=== PATIENT | female | born 1945 | race Two or more races ===

== ENCOUNTER 2025-05-07 11:52 | Inpatient (IN) | payer MEDICARE, MEDICAID ==
[~2025-05-07] VITALS: Ht 137.2 cm; Wt 53.0 kg
--- NOTE | 2025-05-07 12:52 | ED.PDOC ---
SOB-HPI HPI Comments 79y F who presents to the ED for chief complaint of shortness of breath. Pt presents she has been having shortness of breath, wheezing and dry cough for the past 3x weeks since she was discharged from after being hospitalized for similar symptoms for which she was intubated. Pt states she started to have chest tightness today and brought by family for evaluation. Pt in the ED, otherwise denies sick contacts. Pt otherwise has stable vitals in the ED.Pt denies any other symptoms at this time. 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 Hx Family History Family History: Reviewed,noncontributory to illness Social History Smoker: Non-Smoker Alcohol: Denies ETOH Use Drugs: Denies Drug Use Lives In: Home Constitutional: denies: chills, diaphoresis, fatigue, fever, malaise, sweats, weakness, others EENTM: denies: blurred vision, double vision, ear bleeding, ear discharge, ear drainage, ear pain, ear ringing, eye pain, eye redness, hearing loss, mouth pain, mouth swelling, nasal discharge, nose bleeding, nose congestion, nose pain, photophobia, tearing, throat pain, throat swelling, voice changes, others Respiratory: reports: cough, shortness of breath, wheezing; denies: hemoptysis, orthopnea, SOB at rest, SOB with excertion, stridor, others Cardiovascular: denies: chest pain, dizzy spells, diaphoresis, Dyspnea on exertion, edema, irregular heart beat, left arm pain, lightheadedness, palpitations, PND, syncope, others Gastrointestinal: denies: abdomen distended, abdominal pain, blood streaked bowels, constipated, diarrhea, dysphagia, difficulty swallowing, hematemesis, melena, nausea, poor appetite, poor fluid intake, rectal bleeding, rectal pain, vomiting, others Genitourinary: denies: abnormal vagina bleeding, burning, dyspareunia, dysuria, flank pain, frequency, hematuria, incontinence, pain, , vagina discharge, urgency, others Neurological: denies: dizziness, fainting, headache, left sided numbness, left sided weakness, numbness, paresthesia, pre-existing deficit, right sided numbness, right sided weakness, seizure, speech problems, tingling, tremors, weakness, others Musculoskeletal: denies: back pain, gout, joint pain, joint swelling, muscle pain, muscle stiffness, neck pain, others Integumetry: denies: bruises, change in color, change in hair/nails, dryness, laceration, lesions, lumps, rash, wounds, others Allergic/Immunocompromised: denies: Difficulty Healing, Frequent Infections, Hives, Itching, others Hematologic/Lymphatic: denies: anemia, blood clots, easy bleeding, easy bruising, swollen glands, others Endocrine: denies: excessive hunger, excessive sweating, excessive thirst, excessive urination, flushing, intolerance to cold, intolerance to heat, unexplained weight gain, unexplained weight loss, others Psychiatric: denies: anxiety, bipolar disorder, depression, hopeless, panic disorder, schizophrenia, sleepless, suicidal, others All Other Systems: Reviewed and Negative Physical Exam General Appearance: No Apparent Distress, Normal HEENT: Normal ENT Inspection, Pharynx Normal, TMs Normal Neck: Full Range of Motion, Non-Tender, Normal, Normal Inspection Respiratory: Wheezing (bilateral wheezing, incresed work of breathing, poor air flow, moderate respiratory distress) Cardiovascular: No Edema, No JVD, No Murmur, No Gallop, Normal Peripheral Pulses, Regular Rate/Rhythm Breast Exam: Deferred Gastrointestinal: No Organomegaly, Non Tender, No Pulsatile Mass, Normal Bowel Sounds, Soft Genitalia: Deferred Pelvic: Deferred Rectal: Deferred Extremities: No calf tenderness, Normal capillary refill, Normal inspection, Normal range of motion, Non-tender, No pedal edema Musculoskeletal : Apperance: Normal 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 Was a procedure done?: No Differential Dx Differential Diagnosis: CHF, COPD, Myocardial infarction, Pneumonia, Pulmonary Embolism, Respiratory Distress, URI X-Ray, Labs, Meds, VS Vital Signs Date Time Temp Pulse Resp B/P (MAP) Pulse Ox O2 Delivery O2 Flow Rate FiO2 05/07/25 15:22 97.9 80 16 132/43 (72) 98 97.9 05/07/25 13:50 78 18 96 Room Air* 0 21 05/07/25 13:50 98.1 78 18 132/39 (70) 96 98.1 05/07/25 13:29 14 96 Room Air* 0 21 05/07/25 12:08 73 05/07/25 11:53 97.2 77 20 127/41 97 97.2 Lab Test 05/07/25 17:42 05/07/25 14:54 05/07/25 14:51 05/07/25 13:15 Range/Units Troponin I High Sensitivity 9 9 10 </=34 ng/L Influenza Type A Antigen Negative Negative Influenza Type B Antigen Negative Negative SARS-CoV-2 Antigen (Rapid) Negative NEGATIVE White Blood Count 8.5 4.4-10.8 10^3/uL Red Blood Count 3.09 L 4.0-5.20 10^6/uL Hemoglobin 9.4 L 12.2-16.2 g/dL Hematocrit 29.1 L 36.0-46.0 % Mean Corpuscular Volume 94.2 80.0-100.0 fL Mean Corpuscular Hemoglobin 30.4 28.0-32.0 pg Mean Corpuscular Hemoglobin Concent 32.3 32.0-36.0 g/dL Red Cell Distribution Width 17.6 H 11.8-14.3 % Platelet Count 235 140-450 10^3/uL Mean Platelet Volume 8.3 6.9-10.8 fL Neutrophils (%) (Auto) 59.9 37.0-80.0 % Lymphocytes (%) (Auto) 29.9 10.0-50.0 % Monocytes (%) (Auto) 7.6 0.0-12.0 % Eosinophils (%) (Auto) 2.2 0.0-7.0 % Basophils (%) (Auto) 0.4 0.0-2.0 % Neutrophils # (Auto) 5.1 1.6-8.6 10 ^3/uL Lymphocytes # (Auto) 2.5 0.4-5.4 10 ^3/uL Monocytes # (Auto) 0.6 0-1.3 10 ^3/uL Eosinophils # (Auto) 0.2 0-0.8 10 ^3/uL Basophils # (Auto) 0 0-0.2 10 ^3/uL Nucleated Red Blood Cells 0.1 % Sodium Level 141 136-145 mmol/L Potassium Level 5.3 H 3.5-5.1 mmol/L Chloride Level 108 H 98-107 mmol/L Carbon Dioxide Level 24 20-31 mmol/L Anion Gap 9 5-15 Blood Urea Nitrogen 32 H 9-23 mg/dL Creatinine 1.82 H 0.550-1.02 mg/dL Glomerular Filtration Rate Calc 28 >90 mL/min BUN/Creatinine Ratio 17.6 10.0-20.0 Serum Glucose 96 74-106 mg/dL Lactic Acid Level 0.8 0.4-2.0 mmol/L Calcium Level 8.9 8.7-10.4 mg/dL B-Type Natriuretic Peptide 199.18 0-100 pg/mL Current Medications Medications (Trade) Dose Ordered Sig/Bonnie Route Start Time Stop Time Status Last Admin Albuterol (Ventolin Medneb) 20 mg ONCE ONCE N 05/07/25 13:00 05/07/25 13:03 DC 05/07/25 13:25 Sodium Chloride 1,000 ml @ 1,000 mls/hr Q1H ONCE IV 05/07/25 13:00 05/07/25 13:59 DC 05/07/25 13:50 Methylprednisolone Sodium Succinate (Solu Medrol) 125 mg ONCE ONCE IV 05/07/25 13:00 05/07/25 13:03 DC 05/07/25 13:50 Ipratropium [place] (Atrovent Medneb) 1 mg ONCE ONCE N 05/07/25 13:00 05/07/25 13:03 DC 05/07/25 13:25 Piperacillin Sod/ Tazobactam Sod 100 ml @ 100 mls/hr ONCE ONCE IV 05/07/25 13:30 05/07/25 14:29 DC 05/07/25 13:50 Vancomycin HCl 250 ml @ 200 mls/hr ONCE ONCE IV 05/07/25 14:30 05/07/25 15:44 DC 05/07/25 15:[address] [address] Ph: [phone] DIAGNOSTIC IMAGING Diagnostic Imaging Report : [id number] Signed PATIENT: MICHAEL BAKER ACCT: [id number] UNIT: [id number] : 1945 LOC: ER ROOM / BED: / AGE / SEX: 79 / F ADM STATUS: REG ER SERVICE 1300 ORDERING PHYSICIAN: TANYA NICHOLS MD PROCEDURE(s): CXRP - CHEST PORTABLE REASON: r/o pna ORDER NUMBER(s): [id number], ACCESSION NUMBER(s): [id number] EXAM: XY CHEST PORTABLE HISTORY: r/o pna COMPARISON: None TECHNIQUE: Portable upright AP view of the chest was performed. FINDINGS: No pneumothorax, consolidative infiltrates, or pulmonary edema. There are calcified granulomas in both lungs. There is mild linear scarring in the right mid lung. The heart is enlarged. The aortic arch is calcific. IMPRESSION: 1. Old granulomatous disease of the chest without evidence of acute intrathoracic process. 2. Cardiomegaly and atherosclerotic vascular disease. ATED BY: MARY LUNSFORD MD DICTATED DATE/TIME: 05/07/251344 SIGNED BY: MARY LUNSFORD MD SIGNED DATE/TIME: 05/07/251344 CC: X-Ray, Labs, Meds, VS Comment 79-year-old female here today with a presentation consistent with acute respiratory failure likely secondary to asthma exacerbation with a notable history of recent intubation for the same. Patient was started on duo nebs, magnesium, and antibiotics and steroids and will be admitted for further management and care. Patient in agreement with the plan. Time of 1ST Reevaluation: 13:30 Reevaluation 1ST: Improved Time of 2ND Reevaluation: 18:54 Reevaluation 2ND: Improved Patient Education/Counseling: Diagnosis, Treatment Family Education/Counseling: No Family Present SEPSIS Sepsis Screen Date sepsis recognized/suspect: May 07, 2025 Time Sepsis recognized/suspect: 1153 Recent Procedure: No On Antibiotic Therapy: No Respiratory Rate >20: No Heart Rate >90: No Temp<36 C (96.8 F) or >38.3 C: No SBP <90 or MAP <65 mmHG: No New Acute Mental Status Change: No Is the patient on CPAP, BIPAP,: No Physician Orders Electrocardigram (05/07/25 12:28) Blood Culture (05/07/25 13:00) Chest Portable (05/07/25 13:00) Piperacillin-Tazob 3.375gm (Zosyn 3.375g (05/07/25 22:00) Vancomycin Per Pharmacy (05/07/25 13:00) Vancomycin,Random (05/08/25 06:00) Vancomycin Per Pharmacy Protoc (05/07/25 14:33) Creatinine (05/08/25 06:00) Vital Signs Date Time Temp Pulse Resp B/P (MAP) Pulse Ox O2 Delivery O2 Flow Rate FiO2 05/07/25 15:22 97.9 80 16 132/43 (72) 98 97.9 05/07/25 13:50 78 18 96 Room Air* 0 21 05/07/25 13:50 98.1 78 18 132/39 (70) 96 98.1 05/07/25 13:29 14 96 Room Air* 0 21 05/07/25 12:08 73 05/07/25 11:53 97.2 77 20 127/41 97 97.2 Laboratory Tests Test 05/07/25 13:15 Lactic Acid Level 0.8 mmol/L (0.4-2.0) White Blood Count 8.5 10^3/uL (4.4-10.8) Medications Medications Dose Ordered Sig/Bonnie Route Start Time Stop Time Status Last Admin Dose Admin Albuterol 20 mg ONCE ONCE N 05/07/25 13:00 05/07/25 13:03 DC 05/07/25 13:25 Ipratropium [place] 1 mg ONCE ONCE N 05/07/25 13:00 05/07/25 13:03 DC 05/07/25 13:25 Methylprednisolone Sodium Succinate 125 mg ONCE ONCE IV 05/07/25 13:00 05/07/25 13:03 DC 05/07/25 13:50 Piperacillin Sod/ Tazobactam Sod 100 ml @ 100 mls/hr ONCE ONCE IV 05/07/25 13:30 05/07/25 14:29 DC 05/07/25 13:50 Sodium Chloride 1,000 ml @ 1,000 mls/hr Q1H ONCE IV 05/07/25 13:00 05/07/25 13:59 DC 05/07/25 13:50 Vancomycin HCl 250 ml @ 200 mls/hr ONCE ONCE IV 05/07/25 14:30 05/07/25 15:44 DC 05/07/25 15:04 Departure 1 Departure Time of Disposition: 18:55 Impression: Primary Impression: Asthma exacerbation Additional Impressions: Acute hypoxic respiratory failure History of endotracheal intubation Disposition: ADMITTED INPATIENT Admit to: Tele Condition: Guarded Critical Care Note Critical Care Time?: Yes (45 min-critical care time only) Stability Stability form required: No Heart Score Heart Score: Heart Score Response (Comments) Value History N/A 0 EKG N/A 0 Age N/A 0 Risk Factors N/A 0 Troponin N/A 0 Total 0 I personally scribed for TANYA NICHOLS MD ([facility]) on 05/07/25 at 12:52. Electronically submitted by Abdi Frost ([email or web address] [email or web address]). I personally scribed for TANYA NICHOLS MD ([facility]) on 05/07/25 at 12:58. Electronically submitted by Abdi Frost ([facility]). I personally scribed for TANYA NICHOLS MD ([facility]) on 05/07/25 at 13:00. Electronically submitted by Abdi Frost ([facility] I personally scribed for TANYA NICHOLS MD ([facility]) on 05/07/25 at 14:46. Electronically submitted by Abdi Frost ([facility] TANYA NICHOLS MD May 07, 2025 12:52
[2025-05-07] MEDS ORDERED: VANCOMYCIN PER PHARMACY 0 MG IV SCH (13:00)
[2025-05-07] MEDS: IPRATROPIUM BROM 0.5 MG/2.5ML INH SOL HHN ONE (13:25)
[2025-05-07] MEDS: ALBUTEROL SULF 2.5 MG/0.5ML(0.5%) NEB SOLN HHN ONE ×2 (13:25→19:26)
[2025-05-07 13:43] LABS: Hematocrit 29.1 % (36.0-46.0); Hemoglobin 9.4 g/dL (12.2-16.2); Mean Corpuscular Hemoglobin 30.4 pg (28.0-32.0); Mean Corpuscular Volume 94.2 fL (80.0-100.0); Nucleated Red Blood Cells % 0.1 %
--- NOTE | 2025-05-07 13:47 | DVH ---
EXAM: XY CHEST PORTABLE HISTORY: r/o pna COMPARISON: None TECHNIQUE: Portable upright AP view of the chest was performed. FINDINGS: No pneumothorax, consolidative infiltrates, or pulmonary edema. There are calcified granulomas in both lungs. There is mild linear scarring in the right mid lung. The heart is enlarged. The aortic arch is calcific. IMPRESSION: 1. Old granulomatous disease of the chest without evidence of acute intrathoracic process. 2. Cardiomegaly and atherosclerotic vascular disease.
[2025-05-07 13:48] LABS: Sodium 141 mmol/L (136-145)
[2025-05-07 13:49] LABS: Anion Gap 9 (5-15); Calcium 8.9 mg/dL (8.7-10.4); Carbon Dioxide 24 mmol/L (20-31); Chloride 108 mmol/L (98-107); Potassium 5.3 mmol/L (3.5-5.1)
[2025-05-07 13:50] VITALS: PULSE 78; RESP 18; O2SAT 96
[2025-05-07] MEDS: PIPERACILLIN-TAZOB 3.375GM 100 ML IV ONE (13:50)
[2025-05-07] MEDS: SODIUM CHLORIDE 0.9% 1,000 ML IV ONE (13:50)
[2025-05-07] MEDS: methylPREDNISolone SOD SUCC 125 MG/2 ML VL IV ONE (13:50)
[2025-05-07 13:54] LABS: BUN/Creatinine Ratio 17.6 (10.0-20.0); Glucose 96 mg/dL (74-106)
[2025-05-07 13:57] LABS: Blood Urea Nitrogen 32 mg/dL (9-23)
[2025-05-07] MEDS: VANCOMYCIN 1GM/250ML KIT 250 ML IV ONE (15:04)
[2025-05-07 16:06] LABS: COVID19 ANTIGEN SOFIA FIA NEGATIVE (NEGATIVE)
[2025-05-07] MEDS: ALBUTEROL SULF 2.5 MG/0.5ML(0.5%) NEB SOLN ONE (19:07)
[2025-05-07] MEDS ORDERED: MAGNESIUM SULFATE 1GM/100ML 100 ML IV SCH (19:30)
[2025-05-07] MEDS ORDERED: ONDANSETRON HCL 4 MG/2 ML VIAL IV PRN (19:30)
[2025-05-07] MEDS ORDERED: PIPERACILLIN-TAZOB 3.375GM 100 ML IV SCH (22:00)
--- NOTE | 2025-05-07 22:04 | DVHHP2 ---
History of Present Illness Reason for Visit: Shortness for breath History of Present Illness 79-year-old female presents for evaluation of shortness for breath. Patient reports a one-week history of worsening shortness for breath with associated wheezing and a dry nonproductive cough. Patient reports being admitted to an outside facility a month ago and was intubated and placed on dialysis temporarily. Denies chest pain or palpitations. No fever or chills. Past Medical History CVA, kidney disease, Past Surgical History Denies Family History Noncontributory Smoke: No ALCOHOL: none Drugs: None Lives: with Family Review of Systems Review of Systems Review of systems are currently negative otherwise addressed in HPI. Allergies: Coded Allergies: NO KNOWN ALLERGIES (Unverified , 05/07/25) Medications Current Medications Medications Dose Ordered Sig/Bonnie Route Start Time Stop Time Status Last Admin Dose Admin Albuterol 2.5 mg Q4HPRN PRN NEB 05/07/25 19:30 Ipratropium [place] 0.5 mg Q6HPRN PRN NEB 05/07/25 19:30 Azithromycin 250 ml @ 125 mls/hr DAILY IV 05/08/25 10:00 Ondansetron HCl 4 mg Q4HP PRN IV 05/07/25 19:30 Enoxaparin Sodium 30 mg DAILY SC 05/08/25 10:00 Acetaminophen 650 mg Q6HP PRN PO 05/07/25 19:30 Exam Vital Signs Vital Signs Date Time Temp Pulse Resp B/P (MAP) Pulse Ox O2 Delivery O2 Flow Rate FiO2 05/07/25 20:12 97.9 85 18 125/39 (67) 95 97.9 05/07/25 19:28 Room Air* 0 21 Exam Gen: 79-year-old female in mild distress Skin: Warm, dry, normal color and texture, no rash. HEENT: Normocephalic atraumatic, mucous membranes moist and pink. Neck: Cervical and supraclavicular nodes normal without enlargement, trachea is midline, thyroid gland is normal without masses. Pulmonary: Clear to auscultation and percussion bilaterally. Cardiac: Regular rate and rhythm. No murmur Abdomen: Soft, nontender, nondistended, bowel sounds present all 4 quadrants, no guarding, no rigidity, no organomegaly. Extremities: No cyanosis, clubbing, no edema Neuro: Cranial nerves II through XII grossly intact, normal affect and speech, no focal motor deficits. Labs/Xrays AGE / SEX: 79 / F ADM STATUS: REG ER SERVICE 1300 ORDERING PHYSICIAN: TANYA NICHOLS MD PROCEDURE(s): CXRP - CHEST PORTABLE REASON: r/o pna ORDER NUMBER(s): [id number], ACCESSION NUMBER(s): [id number] EXAM: XY CHEST PORTABLE HISTORY: r/o pna COMPARISON: None TECHNIQUE: Portable upright AP view of the chest was performed. FINDINGS: No pneumothorax, consolidative infiltrates, or pulmonary edema. There are calcified granulomas in both lungs. There is mild linear scarring in the right mid lung. The heart is enlarged. The aortic arch is calcific. IMPRESSION: 1. Old granulomatous disease of the chest without evidence of acute intrathoracic process. 2. Cardiomegaly and atherosclerotic vascular disease. Labs Test 05/07/25 17:42 05/07/25 14:54 05/07/25 13:15 Range/Units D-Dimer, Quantitative 2.08 H 0.0-0.49 mg/L FEU Troponin I High Sensitivity 9 </=34 ng/L Influenza Type A Antigen Negative Negative Influenza Type B Antigen Negative Negative SARS-CoV-2 Antigen (Rapid) Negative NEGATIVE White Blood Count 8.5 4.4-10.8 10^3/uL Red Blood Count 3.09 L 4.0-5.20 10^6/uL Hemoglobin 9.4 L 12.2-16.2 g/dL Hematocrit 29.1 L 36.0-46.0 % Mean Corpuscular Volume 94.2 80.0-100.0 fL Mean Corpuscular Hemoglobin 30.4 28.0-32.0 pg Mean Corpuscular Hemoglobin Concent 32.3 32.0-36.0 g/dL Red Cell Distribution Width 17.6 H 11.8-14.3 % Platelet Count 235 140-450 10^3/uL Mean Platelet Volume 8.3 6.9-10.8 fL Neutrophils (%) (Auto) 59.9 37.0-80.0 % Lymphocytes (%) (Auto) 29.9 10.0-50.0 % Monocytes (%) (Auto) 7.6 0.0-12.0 % Eosinophils (%) (Auto) 2.2 0.0-7.0 % Basophils (%) (Auto) 0.4 0.0-2.0 % Neutrophils # (Auto) 5.1 1.6-8.6 10 ^3/uL Lymphocytes # (Auto) 2.5 0.4-5.4 10 ^3/uL Monocytes # (Auto) 0.6 0-1.3 10 ^3/uL Eosinophils # (Auto) 0.2 0-0.8 10 ^3/uL Basophils # (Auto) 0 0-0.2 10 ^3/uL Nucleated Red Blood Cells 0.1 % Sodium Level 141 136-145 mmol/L Potassium Level 5.3 H 3.5-5.1 mmol/L Chloride Level 108 H 98-107 mmol/L Carbon Dioxide Level 24 20-31 mmol/L Anion Gap 9 5-15 Blood Urea Nitrogen 32 H 9-23 mg/dL Creatinine 1.82 H 0.550-1.02 mg/dL Glomerular Filtration Rate Calc 28 >90 mL/min BUN/Creatinine Ratio 17.6 10.0-20.0 Serum Glucose 96 74-106 mg/dL Lactic Acid Level 0.8 0.4-2.0 mmol/L Calcium Level 8.9 8.7-10.4 mg/dL B-Type Natriuretic Peptide 199.18 0-100 pg/mL SEPSIS Sepsis Screen Date sepsis recognized/suspect: May 07, 2025 Time Sepsis recognized/suspect: 1153 Recent Procedure: No On Antibiotic Therapy: No Respiratory Rate >20: No Heart Rate >90: No Temp<36 C (96.8 F) or >38.3 C: No SBP <90 or MAP <65 mmHG: No New Acute Mental Status Change: No Is the patient on CPAP, BIPAP,: No Physician Orders Vancomycin,Random (05/08/25 06:00) Vancomycin Per Pharmacy Protoc (05/07/25 14:33) Creatinine (05/08/25 06:00) Albuterol Medneb (Ventolin Medneb) (05/07/25 19:30) Ipratropium Medneb (Atrovent Medneb) (05/07/25 19:30) Azithromycin 500mg/250ml (Zithromax 500m (05/08/25 10:00) Basic Metabolic Panel (05/08/25 04:00) Admit (05/07/25 19:23) Ondansetron Hcl (Zofran) (05/07/25 19:30) Complete Blood Count (05/08/25 04:00) Cardiac Diet-2gna,Lofat,Lochol (05/08/25 Breakfast) Echo 2d Mode Cardiac Dop (05/07/25 19:23) Condition: Stable (05/07/25 19:23) Enoxaparin Sodium (Lovenox) (05/08/25 10:00) Acetaminophen Tablet (Tylenol Tablet) (05/07/25 19:30) Bedrest With Bathroom Privileg (05/07/25 19:23) Vital Signs Date Time Temp Pulse Resp B/P (MAP) Pulse Ox O2 Delivery O2 Flow Rate FiO2 05/07/25 20:12 97.9 85 18 125/39 (67) 95 97.9 05/07/25 19:28 22 98 Room Air* 0 21 05/07/25 15:22 97.9 80 16 132/43 (72) 98 97.9 Laboratory Tests Test 05/07/25 13:15 Lactic Acid Level 0.8 mmol/L (0.4-2.0) White Blood Count 8.5 10^3/uL (4.4-10.8) Medications Medications Dose Ordered Sig/Bonnie Route Start Time Stop Time Status Last Admin Dose Admin Albuterol 20 mg ONCE ONCE [facility] 05/07/25 13:00 05/07/25 13:03 DC 05/07/25 13:25 20 MG Albuterol 20 mg ONCE ONCE N 05/07/25 19:30 05/07/25 19:31 DC 05/07/25 19:26 20 MG Ipratropium [place] 1 mg ONCE ONCE N 05/07/25 13:00 05/07/25 13:03 DC 05/07/25 13:25 1 MG Methylprednisolone Sodium Succinate 125 mg ONCE ONCE IV 05/07/25 13:00 05/07/25 13:03 DC 05/07/25 13:50 125 MG Piperacillin Sod/ Tazobactam Sod 100 ml @ 100 mls/hr ONCE ONCE IV 05/07/25 13:30 05/07/25 14:29 DC 05/07/25 13:50 100 MLS/HR Sodium Chloride 1,000 ml @ 1,000 mls/hr Q1H ONCE IV 05/07/25 13:00 05/07/25 13:59 DC 05/07/25 13:50 1,000 MLS/HR Vancomycin HCl 250 ml @ 200 mls/hr ONCE ONCE IV 05/07/25 14:30 05/07/25 15:44 DC 05/07/25 15:04 200 MLS/HR Assessment/Plan Assessment/Plan Assessment Acute respiratory distress Possible pneumonitis Acute on chronic renal failure Cardiomegaly Plan Admit the patient to Med surge to the hospitalist Nephrology consultation Resume home medications Azithromycin Med nebs Continue treatment per orders. Plan discussed with: Patient My Orders Orders - ARIA DANIELS Procedure Category Date Status Time Albuterol Medneb PHA 05/07/25 In Process (Ventolin Medneb) 19:30 Ipratropium Medneb PHA 05/07/25 In Process (Atrovent Medneb) 19:30 Azithromycin PHA 05/08/25 In Process 500mg/250ml 10:00 Basic Metabolic Panel LAB 05/08/25 Verified 04:00 Admit ADMIT 05/07/25 Transmitted 19:23 Ondansetron Hcl PHA 05/07/25 In Process (Zofran) 19:30 Complete Blood Count LAB 05/08/25 Verified 04:00 Cardiac DIET 05/08/25 Transmitted Diet-2gna,Lofat,Lochol Breakfast Echo 2d Mode Cardiac US 05/07/25 Logged DOP 19:23 Condition: Stable LAYLA 05/07/25 In Process 19:23 Enoxaparin Sodium PHA 05/08/25 In Process (Lovenox) 10:00 Acetaminophen Tablet PHA 05/07/25 In Process (Tylenol Tablet) 19:30 Bedrest With Bathroom LAYLA 05/07/25 In Process Privileg 19:23 Date of Service: May 07, 2025 Billing Provider: ARIA DANIELS Common Visit Codes: [id number] INP/OBS CARE (HIGH) ARIA DANIELS May 07, 2025 22:04
[2025-05-07 22:28] VITALS: BP 123/60; PULSE 80; RESP 18; TEMP 97.7; O2SAT 98
[2025-05-07 22:44] VITALS: BP 125/39; PULSE 85; RESP 18; TEMP 97.9; O2SAT 96
[2025-05-07 22:47] VITALS: PULSE 80; RESP 18; O2SAT 98
[2025-05-07] MEDS ORDERED: ALL100T PO (22:59)
[2025-05-07] MEDS ORDERED: AML5T PO (22:59)
[2025-05-07] MEDS ORDERED: PANT40TA2 PO (23:00)
[2025-05-07] MEDS ORDERED: CARV25TA55 PO (23:00)
[2025-05-07] MEDS ORDERED: HYDR50TA47 PO (23:01)
[2025-05-07] MEDS ORDERED: ASPI-498 PO (23:01)
[2025-05-08] VITALS (9 sets, daily range): BP systolic 121–146; BP diastolic 55–83; PULSE 70–89; RESP 16–20; TEMP 97.5–98; O2SAT 96–100
[2025-05-08] MEDS: SODIUM ZIRCONIUM CYCL 10 GM PAK PO ONE (05:33)
[2025-05-08 08:07] LABS: Hematocrit 28.3 % (36.0-46.0); Hemoglobin 9.2 g/dL (12.2-16.2); Mean Corpuscular Hemoglobin 30.9 pg (28.0-32.0); Mean Corpuscular Volume 94.9 fL (80.0-100.0); Nucleated Red Blood Cells % 0.0 %
[2025-05-08 08:13] LABS: Potassium 4.7 mmol/L (3.5-5.1); Sodium 141 mmol/L (136-145)
[2025-05-08 08:14] LABS: Anion Gap 11 (5-15); Calcium 9.0 mg/dL (8.7-10.4); Carbon Dioxide 20 mmol/L (20-31)
[2025-05-08 08:15] LABS: Chloride 110 mmol/L (98-107)
[2025-05-08 08:19] LABS: BUN/Creatinine Ratio 16.6 (10.0-20.0); Blood Urea Nitrogen 30 mg/dL (9-23); Glucose 148 mg/dL (74-106)
[2025-05-08] MEDS: ENOXAPARIN SOD 30 MG/0.3 ML SYRINGE SC SCH (10:22)
[2025-05-08] MEDS: AZITHROMYCIN 500MG/250ML 250 ML IV SCH (10:23)
[2025-05-08] MEDS: FUROSEMIDE 40 MG TAB PO SCH (10:23)
--- NOTE | 2025-05-08 14:36 | DVHPN2 ---
Subjective Patient reporting right-sided abdominal pain. Reviewed: Care Plan, H&P, Labs, Medications Changes from previous H/P or p: No Changes General: Per HPI Objective Vitals Vital Signs Date Time Temp Pulse Resp B/P (MAP) Pulse Ox O2 Delivery O2 Flow Rate FiO2 05/08/25 13:00 97.8 78 18 121/56 (77) 96 97.8 05/08/25 08:00 Nasal Cannula* 1 24 Intake/Output Intake and Output 05/08/25 07:00 Intake Total 1590 ml Balance 1590 ml Intake Oral 240 ml IV Total 1350 ml # Voids 1 General Appearance: Alert, Oriented X3, Cooperative, No acute distress HEENT: Atraumatic, PERRLA Lungs: Clear to auscultation, Normal air movement Cardiovascular: Normal S1, Normal S2 Abdomen: Other (Tenderness with palpation to right upper and lower quadrant) Genitourinary: No Apparent Abnormalities Musculoskeletal: Normal sensory function, Normal motor function Extremities: No clubbing, No cyanosis Skin: Dry, Intact Psych/Mental Status: Mental status NL, Mood NL Medications Current Medications Medications Dose Ordered Sig/Bonnie Route Start Time Stop Time Status Last Admin Dose Admin Albuterol 2.5 mg Q4HPRN PRN NEB 05/07/25 19:30 Ipratropium [place] 0.5 mg Q6HPRN PRN NEB 05/07/25 19:30 Azithromycin 250 ml @ 125 mls/hr DAILY IV 05/08/25 10:00 05/08/25 10:23 125 MLS/HR Ondansetron HCl 4 mg Q4HP PRN IV 05/07/25 19:30 Enoxaparin Sodium 30 mg DAILY SC 05/08/25 10:00 05/08/25 10:22 30 MG Acetaminophen 650 mg Q6HP PRN PO 05/07/25 19:30 Aspirin 81 mg DAILY PO 05/08/25 10:00 Atorvastatin Calcium 10 mg HS PO 05/08/25 22:00 Furosemide 40 mg DAILY PO 05/08/25 10:00 05/08/25 10:23 40 MG Piperacillin Sod/ Tazobactam Sod 100 ml @ 25 mls/hr Q8HR IV 05/08/25 22:00 UNV Laboratory Results Laboratory Tests 05/08/25 07:20 Chemistry Test 05/08/25 07:20 Calcium Level 9.0 mg/dL (8.7-10.4) Coagulation Test 05/07/25 17:42 D-Dimer, Quantitative 2.08 mg/L FEU (0.0-0.49) H Microbiology Microbiology Date/Time Source Procedure Growth Status 05/08/25 05:40 Nose MRSA Screen - Final Complete 05/07/25 13:15 Blood Blood Culture - Preliminary NO GROWTH AFTER 24 HOURS OF INCUBATION. Resulted Labs and/or images reviewed: Labs reviewed by me, Image(s) reviewed by me Assessment/Plan Assessment/Plan Impression: -acute on chronic hypoxic respiratory failure -CKD stage IIIB/four -questionable COPD with exacerbation -abdominal pain -CVA Plan: -patient complaining of abdominal pain with noted guarding and tenderness with palpation. CT scan of the abdomen and pelvis to be ordered. -nephrology consultation -continue bronchodilators -O2 supplementation to keep saturation greater than 92% -pain management -repeat labs and chest x-ray in a.m. Total time spent with patient discussing and formulating plan of care: 35 minutes. This medical document was created using an electronic medical record system with [employer] dictation system. Although this document has been carefully reviewed, there may still be some phonetic and typographical errors. These areas are purely typographical due to imperfections of the software programs, and do not reflect any compromise in the patient's medical care. Plan discussed with: Patient, Other (rn) My Orders Orders - EDUARDO NEGRON NP Procedure Category Date Status Time Ct Ab Pel Wo Con-No CT 05/08/25 Logged Oral Or Iv 14:26 Piperacillin-Tazob PHA 05/08/25 Logged 3.375gm (Zosyn 3.375g 22:00 Basic Metabolic Panel LAB 05/09/25 Verified 04:00 Complete Blood Count LAB 05/09/25 Verified 04:00 Date of Service: May 08, 2025 Billing Provider: EDUARDO NEGRON NP Common Visit Codes: [id number] INP/OBS CARE(HIGH) EDUARDO NEGRON NP May 08, 2025 14:35
[2025-05-08] MEDS: PIPERACILLIN-TAZOB 3.375GM 100 ML IV ONE (15:00)
--- NOTE | 2025-05-08 16:09 | DVH ---
EXAM: CT CT AB PEL WO CON-NO ORAL OR IV HISTORY: right upper and lower quadrant pain Comparison Study: None Exam Date: 05/08/2025 03:10 PM Radiation Dose Information: CT Dose: CTDI volume is 6 mGy. Dose-length product is 305 mGy*cm TECHNIQUE: Multidetector CT of the abdomen and pelvis was performed. Imaging was performed without IV contrast. Axial, coronal and sagittal multiplanar reformats were obtained from the axial data set by the technologist. FINDINGS: Lack of intravenous contrast compromises evaluation of perfusion and for isodense lesions. Lower chest: Clear. Liver: Unremarkable Biliary system: Surgically absent gallbladder with mildly dilated bile ducts, likely related to postcholecystectomy state Spleen: Unremarkable Pancreas: Unremarkable. Adrenals: Unremarkable. Kidneys and ureters: No hydronephrosis Bowel: No obstruction. Normal appendix. Scattered colonic diverticula. Bladder: Unremarkable Reproductive organs: No abnormal mass. Lymph nodes: Unremarkable. Peritoneum: Unremarkable Vessels: Moderate atherosclerosis. Patency is not evaluated on this noncontrast study. Bones and soft tissue: No aggressive osseous lesion.Multilevel degenerative changes of the lumbar spine. IMPRESSION: Motion degraded study. Given this limitation, no acute findings.
--- NOTE | 2025-05-08 16:26 | ECG ---
[facility] Test Date: 2025-05-07 Test Time: 12:08:54 Pat Name: MICHAEL BAKER Department: ED Room: 0290 A Gender: F Front Tender: SHERITA : 1945 Requested By: TANYA NICHOLS Order Number: [id number] Reading MD: Brett Aguilar Measurements Intervals [place] Rate: 73 P: -72 MO: 125 QRS: -25 QRSD: 152 T: 149 QT: 353 QTc: 389 Interpretive Statements Ectopic atrial rhythm LVH with IVCD and secondary repol abnrm Inferior infarct, old Electronically Signed On 05-09-2025 20:03:11 PST by Brett Aguilar Please click the below link to view image of tracing.
[2025-05-08] MEDS: VANCOMYCIN 1GM/250ML KIT 250 ML IV ONE (16:45)
[2025-05-08] MEDS: ACETAMINOPHEN 325 MG TAB PO PRN (17:02)
[2025-05-08] MEDS: PIPERACILLIN-TAZOB 3.375GM 100 ML IV SCH (21:04)
[2025-05-08] MEDS: ATORVASTATIN 20 MG TAB PO SCH (21:05)
[2025-05-09] VITALS (8 sets, daily range): BP systolic 104–140; BP diastolic 59–90; PULSE 67–82; RESP 16–20; TEMP 97.7–98.4; O2SAT 95–99
[2025-05-09 06:28] LABS: Potassium 4.6 mmol/L (3.5-5.1); Sodium 143 mmol/L (136-145)
[2025-05-09 06:29] LABS: Anion Gap 9 (5-15); Carbon Dioxide 26 mmol/L (20-31)
[2025-05-09 06:31] LABS: Calcium 8.7 mg/dL (8.7-10.4); Chloride 108 mmol/L (98-107)
[2025-05-09 06:35] LABS: BUN/Creatinine Ratio 22.8 (10.0-20.0)
[2025-05-09 06:37] LABS: Blood Urea Nitrogen 39 mg/dL (9-23); Glucose 118 mg/dL (74-106); Hematocrit 25.0 % (36.0-46.0); Hemoglobin 8.2 g/dL (12.2-16.2); Mean Corpuscular Hemoglobin 30.7 pg (28.0-32.0); Mean Corpuscular Volume 93.8 fL (80.0-100.0); Nucleated Red Blood Cells % 0.0 %
[2025-05-09] MEDS: ALBUTEROL SULF 2.5 MG/0.5ML(0.5%) NEB SOLN NEB PRN (07:34)
[2025-05-09] MEDS: IPRATROPIUM BROM 0.5 MG/2.5ML INH SOL NEB PRN (07:34)
[2025-05-09 12:07] LABS: Alanine Aminotransferase < 9 U/L (7-40); Albumin 3.4 g/dL (3.2-4.8); Alkaline Phosphatase 47 U/L (46-116); Anion Gap 8 (5-15); BUN/Creatinine Ratio 19.1 (10.0-20.0); Blood Urea Nitrogen 31 mg/dL (9-23); Calcium 8.7 mg/dL (8.7-10.4); Carbon Dioxide 25 mmol/L (20-31); Chloride 108 mmol/L (98-107); Glucose 97 mg/dL (74-106); Potassium 4.1 mmol/L (3.5-5.1); Sodium 141 mmol/L (136-145); Total Protein 6.0 g/dL (5.7-8.2)
[2025-05-09 12:09] LABS: Bilirubin, Total 0.2 mg/dL (0.2-1.0)
--- NOTE | 2025-05-09 12:17 | DVHPN2 ---
Subjective Patient denies any symptoms today. Reviewed: Care Plan, H&P, Labs, Medications Changes from previous H/P or p: No Changes General: Per HPI Objective Vitals Vital Signs Date Time Temp Pulse Resp B/P (MAP) Pulse Ox O2 Delivery O2 Flow Rate FiO2 05/09/25 10:47 126/79 05/09/25 09:00 97.7 70 20 99 97.7 05/09/25 08:00 Nasal Cannula* 1 24 Intake/Output Intake and Output 05/09/25 07:00 Intake Total 780 ml Balance 780 ml Intake Oral 680 ml IV Total 100 ml # Voids 8 # Bowel Movements 3 General Appearance: Alert, Oriented X3, Cooperative, No acute distress HEENT: Atraumatic, PERRLA Lungs: Clear to auscultation, Normal air movement Cardiovascular: Normal S1, Normal S2 Abdomen: Other (Tenderness with palpation to right upper and lower quadrant) Genitourinary: No Apparent Abnormalities Musculoskeletal: Normal sensory function, Normal motor function Extremities: No clubbing, No cyanosis Skin: Dry, Intact Psych/Mental Status: Mental status NL, Mood NL Medications Current Medications Medications Dose Ordered Sig/Bonnie Route Start Time Stop Time Status Last Admin Dose Admin Albuterol 2.5 mg Q4HPRN PRN NEB 05/07/25 19:30 05/09/25 07:34 2.5 MG Ipratropium Neville 0.5 mg Q6HPRN PRN NEB 05/07/25 19:30 05/09/25 07:34 0.5 MG Azithromycin 250 ml @ 125 mls/hr DAILY IV 05/08/25 10:00 05/09/25 10:47 125 MLS/HR Ondansetron HCl 4 mg Q4HP PRN IV 05/07/25 19:30 Enoxaparin Sodium 30 mg DAILY SC 05/08/25 10:00 05/09/25 10:48 30 MG Acetaminophen 650 mg Q6HP PRN PO 05/07/25 19:30 05/08/25 17:02 650 MG Atorvastatin Calcium 10 mg HS PO 05/08/25 22:00 05/08/25 21:05 10 MG Furosemide 40 mg DAILY PO 05/08/25 10:00 05/09/25 10:47 40 MG Piperacillin Sod/ Tazobactam Sod 100 ml @ 25 mls/hr Q12HR IV 05/08/25 22:00 05/09/25 10:47 25 MLS/HR Aspirin 81 mg DAILY PO 05/10/25 10:00 Laboratory Results Laboratory Tests 05/09/25 06:00 05/09/25 11:39 Chemistry Test 05/09/25 06:00 05/09/25 11:39 Calcium Level 8.7 mg/dL (8.7-10.4) 8.7 mg/dL (8.7-10.4) Albumin 3.4 g/dL (3.2-4.8) Total Protein 6.0 g/dL (5.7-8.2) LFT Test 05/09/25 11:39 Alanine Aminotransferase (ALT) < 9 U/L (7-40) Alkaline Phosphatase 47 U/L (46-116) Aspartate Amino Transferase (AST) 8 U/L (13-40) L Total Bilirubin 0.2 mg/dL (0.2-1.0) Microbiology Microbiology Date/Time Source Procedure Growth Status 05/08/25 05:40 Nose MRSA Screen - Final Complete 05/07/25 13:15 Blood Blood Culture - Preliminary NO GROWTH AFTER 24 HOURS OF INCUBATION. Resulted Labs and/or images reviewed: Labs reviewed by me, Image(s) reviewed by me Assessment/Plan Assessment/Plan Impression: -acute on chronic hypoxic respiratory failure -CKD stage IIIB/four -questionable COPD with exacerbation -abdominal pain -CVA -rule out sepsis Plan: Events: CT scan of the abdomen and pelvis unremarkable. Patient reports that her abdominal pain has resolved. Now with leukocytosis. Blood culture negative at this time. -UA/UC. Check ESR, CRP -nephrology consultation -continue bronchodilators -O2 supplementation to keep saturation greater than 92% -pain management -repeat labs in a.m. Total time spent with patient discussing and formulating plan of care: 35 minutes. This medical document was created using an electronic medical record system with [employer] dictation system. Although this document has been carefully reviewed, there may still be some phonetic and typographical errors. These areas are purely typographical due to imperfections of the software programs, and do not reflect any compromise in the patient's medical care. Plan discussed with: Patient, Other (RN) My Orders Orders - EDUARDO NEGRON BREAKER OILER Procedure Category Date Status Time Ct Ab Pel Wo Con-No CT 05/08/25 Resulted Oral Or Iv 14:26 Piperacillin-Tazob PHA 05/08/25 In Process 3.375gm (Zosyn 3.375g 22:00 Urinalysis LAB 05/09/25 Logged 10:58 Urine Bacterial DARWIN 05/09/25 Logged Culture 10:58 Erythrocyte LAB 05/09/25 Verified Sedimentation Rate 12:13 C-Reactive Protein LAB 05/09/25 Verified 12:13 Date of Service: May 09, 2025 Billing Provider: EDUARDO NEGRON NP Common Visit Codes: [id number] INP/OBS CARE(HIGH) EDUARDO NEGRON NP May 09, 2025 12:17
--- NOTE | 2025-05-09 12:59 | DVHSR ---
APPROVED REPORT EXAM: Two-dimensional and M-mode echocardiogram with Doppler and color Doppler. Blood Pressure: 130/62 mmHg INDICATION Dyspnea Heart Failure EF RISK FACTORS Height: 4'6", Weight: 125 DIMENSIONS LVDd 5.1 (3.8-5.7cm) LA (2D) 3.7 (1.9-4.0cm) Aortic Root 2.6 (2.0-3.7cm) LVDs 3.6 (2.5-4.0cm) LA (MM) (1.9-4.0cm) Aortic Cusp Exc 1.5 (1.5-2.0cm) EF (%) 55.0 (55-70%) Rt. Atrium 3.5 (1.9-4.0cm) Asc. Aorta 3.0 cm IVSd 1.0 (0.7-1.1cm) RV (D) 3.5 (1.8-2.4cm) PWd 1.2 (0.7-1.1cm) Mitral Valve Mitral Mitral Stenosis E wave 1.03m/s MV Mean GR. mmHg A wave 1.27m/s MV Peak GR. mmHg E/A ratio 0.8 2D MVA cm2 DECEL Time 247ms PRESS 1/2 Time ms Aortic Valve Aortic Valve Aortic Stenosis V1 0.97m/s AO Mean GR. 7mmHg V2 1.81m/s AO Peak GR. 13mmHg LVOT Diameter 1.9 (1.8-2.4cm) Doppler ARLETH 1.52cm2 Pulmonic Valve V2 1.17m/s Tricuspid Valve TR Velocity 2.71m/s RVSP 33mmHg Other Information Quality : Technically Limited Rhythm : Technically limited study due to body habitus. Conclusion LVEF is normal at 50-55%, moderate diastolic dysfunction right ventricle size and function normal Mild pulmonary hypertension RSVP 35-40 mmHg Aortic valve not well visualized, no hemodynamic stenosis
[2025-05-09 14:11] LABS: Urine Protein, UAD Negative (Negative)
--- NOTE | 2025-05-09 18:13 | DVHINCON2 ---
Date of service: May 09, 2025 Referring Physician Kendrick Ayala NP Reason for Consultation Acute kidney injury History of Present Illness Oksana david is a 79-year-old female with known history of chronic kidney disease, baseline creatinine unknown to me however. She does have a history of prior a cute kidney injury, ATN that required dialysis therapy. She presented to the emergency room for further evaluation and management of subacute history of progressive dyspnea. Serum creatinine noted to be 1.8 and has downtrended with current hospital management. I was asked to consult on Mrs. Marino for her kidney insufficiency. She currently denies dyspnea, fever, arthralgias or myalgias, gross hematuria, recent NSAID use Past Medical History Hypertension Asthma Allergies: Coded Allergies: NO KNOWN ALLERGIES (Unverified , 05/07/25) Home Meds Reported Medications Aspirin (ASPIRIN 81) 81 Mg Tab, 81 MG PO DAILY, TAB 05/07/25 Hydralazine Hcl (Hydralazine Hcl) 50 Mg Tab, 50 MG PO DAILY, TAB 05/07/25 Pantoprazole Sodium Sesquihydr (Protonix) 40 Mg Tab, 40 MG PO DAILY, #30 TAB 05/07/25 Carvedilol (Carvedilol) 25 Mg Tab, 1 TAB PO BID, #180 TAB 1 Refill 05/07/25 Allopurinol (ZYLOPRIM TABLET) 100 Mg Tb, 1 TAB PO DAILY, #30 TAB 5 Refills 05/07/25 Amlodipine Besylate (NORVASC TABLET) 5 Mg Tb, 1 TAB PO DAILY, #30 TAB 5 Refills 05/07/25 Current Medications Current Medications Medications (Trade) Dose Ordered Sig/Bonnie Route PRN Reason Start Time Stop Time Status Last Admin Atorvastatin Calcium (Lipitor) 10 mg HS PO 05/08/25 22:00 05/08/25 21:05 Piperacillin Sod/ Tazobactam Sod 100 ml @ 25 mls/hr Q12HR IV 05/08/25 22:00 05/09/25 10:47 Aspirin (Ecotrin Enteric Coated Tablet) 81 mg DAILY PO 05/10/25 10:00 Family History: Patient reports no known family medical history. Review of Systems As per history of present illness otherwise all systems are reviewed and are noncontributory. H&P Exam Vital Signs/I&O Vital Sign Date Time Temp Pulse Resp B/P (MAP) Pulse Ox O2 Delivery O2 Flow Rate FiO2 05/09/25 17:20 98.4 67 16 118/62 (80) 99 98.4 05/09/25 08:00 Nasal Cannula* 1 24 Intake and Output 05/08/25 05/09/25 19:00 07:00 Intake Total 480 ml 300 ml Balance 480 ml 300 ml Intake Oral 480 ml 200 ml IV Total 100 ml # Voids 6 2 # Bowel Movements 2 1 Physical Exam Gen: nad, appears stated age heent: nc/at, mmm lungs: cta anteriorly cvs: no rub abd: soft, bowel sounds audible ext: Trace edema skin: no rash neuro: alert and oriented Labs/Diagnostic Data Labs/Diagnostic Data Laboratory Tests Test 05/09/25 14:00 05/09/25 11:39 05/09/25 06:00 05/08/25 07:20 Range/Units Urine Color Light-yellow Yellow Urine Clarity Clear Clear Urine pH 5.5 5.0-9.0 Urine Specific [place] 1.007 1.001-1.035 Urine Protein Negative Negative Urine Ketones Negative Negative Urine Blood Negative Negative /uL Urine Nitrite Negative Negative Urine Bilirubin Negative Negative Urine Urobilinogen Normal Negative mg/dL Urine Leukocyte Esterase Negative Negative /uL Urine RBC 1 0 - 4 /hpf Urine Microscopic WBC < 1 0-5 /HPF Urine Squamous Epithelial Cells Few <5 /hpf Urine Bacteria None seen None Seen /hpf Urine Glucose Normal Normal mg/dL Sodium Level 141 143 141 136-145 mmol/L Potassium Level 4.1 4.6 4.7 3.5-5.1 mmol/L Chloride Level 108 H 108 H 110 H 98-107 mmol/L Carbon Dioxide Level 25 26 20 20-31 mmol/L Anion Gap 8 9 11 5-15 Blood Urea Nitrogen 31 H 39 H 30 H 9-23 mg/dL Creatinine 1.62 H 1.71 H 1.81 H 0.550-1.02 mg/dL Glomerular Filtration Rate Calc 32 30 28 >90 mL/min BUN/Creatinine Ratio 19.1 22.8 H 16.6 10.0-20.0 Serum Glucose 97 118 H 148 H 74-106 mg/dL Calcium Level 8.7 8.7 9.0 8.7-10.4 mg/dL Total Bilirubin 0.2 0.2-1.0 mg/dL Aspartate Amino Transferase (AST) 8 L 13-40 U/L Alanine Aminotransferase (ALT) < 9 7-40 U/L Alkaline Phosphatase 47 46-116 U/L C-Reactive Protein High Sensitivity 0.34 <1.0 mg/dL Total Protein 6.0 5.7-8.2 g/dL Albumin 3.4 3.2-4.8 g/dL White Blood Count 15.3 #H 8.2 4.4-10.8 10^3/uL Red Blood Count 2.67 L 2.98 L 4.0-5.20 10^6/uL Hemoglobin 8.2 L 9.2 L 12.2-16.2 g/dL Hematocrit 25.0 #L 28.3 L 36.0-46.0 % Mean Corpuscular Volume 93.8 94.9 80.0-100.0 fL Mean Corpuscular Hemoglobin 30.7 30.9 28.0-32.0 pg Mean Corpuscular Hemoglobin Concent 32.7 32.6 32.0-36.0 g/dL Red Cell Distribution Width 17.5 H 17.4 H 11.8-14.3 % Platelet Count 200 229 140-450 10^3/uL Mean Platelet Volume 8.6 8.8 6.9-10.8 fL Neutrophils (%) (Auto) 85.8 H 86.1 H 37.0-80.0 % Lymphocytes (%) (Auto) 9.2 L 13.0 10.0-50.0 % Monocytes (%) (Auto) 5.0 0.9 0.0-12.0 % Eosinophils (%) (Auto) 0.0 0.0 0.0-7.0 % Basophils (%) (Auto) 0.0 0.0 0.0-2.0 % Neutrophils # (Auto) 13.1 H 7.1 1.6-8.6 10 ^3/uL Lymphocytes # (Auto) 1.4 1.1 0.4-5.4 10 ^3/uL Monocytes # (Auto) 0.8 0.1 0-1.3 10 ^3/uL Eosinophils # (Auto) 0 0 0-0.8 10 ^3/uL Basophils # (Auto) 0 0 0-0.2 10 ^3/uL Nucleated Red Blood Cells 0.0 0.0 % Erythrocyte Sedimentation Rate 33 H 0-20 mm/hr Random Vancomycin Level 19.1 H 12.6 H 5-10 ug/mL Test 05/07/25 17:42 05/07/25 14:54 05/07/25 14:51 05/07/25 13:15 Range/Units D-Dimer, Quantitative 2.08 H 0.0-0.49 mg/L FEU Troponin I High Sensitivity 9 9 10 </=34 ng/L Influenza Type A Antigen Negative Negative Influenza Type B Antigen Negative Negative SARS-CoV-2 Antigen (Rapid) Negative NEGATIVE White Blood Count 8.5 4.4-10.8 10^3/uL Red Blood Count 3.09 L 4.0-5.20 10^6/uL Hemoglobin 9.4 L 12.2-16.2 g/dL Hematocrit 29.1 L 36.0-46.0 % Mean Corpuscular Volume 94.2 80.0-100.0 fL Mean Corpuscular Hemoglobin 30.4 28.0-32.0 pg Mean Corpuscular Hemoglobin Concent 32.3 32.0-36.0 g/dL Red Cell Distribution Width 17.6 H 11.8-14.3 % Platelet Count 235 140-450 10^3/uL Mean Platelet Volume 8.3 6.9-10.8 fL Neutrophils (%) (Auto) 59.9 37.0-80.0 % Lymphocytes (%) (Auto) 29.9 10.0-50.0 % Monocytes (%) (Auto) 7.6 0.0-12.0 % Eosinophils (%) (Auto) 2.2 0.0-7.0 % Basophils (%) (Auto) 0.4 0.0-2.0 % Neutrophils # (Auto) 5.1 1.6-8.6 10 ^3/uL Lymphocytes # (Auto) 2.5 0.4-5.4 10 ^3/uL Monocytes # (Auto) 0.6 0-1.3 10 ^3/uL Eosinophils # (Auto) 0.2 0-0.8 10 ^3/uL Basophils # (Auto) 0 0-0.2 10 ^3/uL Nucleated Red Blood Cells 0.1 % Sodium Level 141 136-145 mmol/L Potassium Level 5.3 H 3.5-5.1 mmol/L Chloride Level 108 H 98-107 mmol/L Carbon Dioxide Level 24 20-31 mmol/L Anion Gap 9 5-15 Blood Urea Nitrogen 32 H 9-23 mg/dL Creatinine 1.82 H 0.550-1.02 mg/dL Glomerular Filtration Rate Calc 28 >90 mL/min BUN/Creatinine Ratio 17.6 10.0-20.0 Serum Glucose 96 74-106 mg/dL Lactic Acid Level 0.8 0.4-2.0 mmol/L Calcium Level 8.9 8.7-10.4 mg/dL B-Type Natriuretic Peptide 199.18 0-100 pg/mL Microbiology Date/Time Source Procedure Growth Status 05/08/25 05:40 Nose MRSA Screen - Final Complete Assessment IMP: 1) Hemodynamically mediated acute kidney injury and vasomotor nephropathy 2) CKD stage IIIB 3) dyspnea with hypoxia 4) history of asthma 5) history of hypertension REC: - Mrs. Pimentel has had stable/ improved kidney function since hospital admission. Her metabolic parameters acceptable, she has mild hyperkalemia That we will continue to monitor. Agree with continued use of loop diuretic, her blood pressures are well controlled currently and she is without significant hypoxia. General recommendations to avoid NSAIDs, intravenous contrast studies if able. I will continue to follow Mrs. Pimentel closely along with you. Thank you for the consultation. Plan discussed with: Other STEPHANIE DIANE MD May 09, 2025 18:13
[2025-05-10] VITALS (7 sets, daily range): BP systolic 101–145; BP diastolic 52–69; PULSE 66–76; RESP 16–18; TEMP 36.6; O2SAT 95–100
[2025-05-10] MEDS: ASPirin-EC 81 mg tab PO SCH (08:38)
[2025-05-10 08:55] LABS: Chloride 105 mmol/L (98-107); Hematocrit 28.8 % (36.0-46.0); Hemoglobin 9.2 g/dL (12.2-16.2); Mean Corpuscular Hemoglobin 30.2 pg (28.0-32.0); Mean Corpuscular Volume 94.6 fL (80.0-100.0); Nucleated Red Blood Cells % 0.1 %; Potassium 3.8 mmol/L (3.5-5.1); Sodium 141 mmol/L (136-145)
[2025-05-10 08:56] LABS: Anion Gap 10 (5-15); Carbon Dioxide 26 mmol/L (20-31)
[2025-05-10 08:57] LABS: Calcium 9.0 mg/dL (8.7-10.4)
[2025-05-10 09:01] LABS: BUN/Creatinine Ratio 14.4 (10.0-20.0)
[2025-05-10 09:02] LABS: Blood Urea Nitrogen 26 mg/dL (9-23); Glucose 150 mg/dL (74-106)
--- NOTE | 2025-05-10 11:46 | DVHDS2 ---
Discharge Summary Date of Admission May 07, 2025 at 19:23 Date of Discharge: May 10, 2025 Admitting Diagnosis Acute respiratory distress Labs/Diagnostic Data: Laboratory Results Test 05/10/25 08:22 05/09/25 14:00 05/09/25 11:39 05/09/25 06:00 White Blood Count 8.2 10^3/uL (4.4-10.8) Red Blood Count 3.04 10^6/uL (4.0-5.20) Hemoglobin 9.2 g/dL (12.2-16.2) Hematocrit 28.8 % (36.0-46.0) Mean Corpuscular Volume 94.6 fL (80.0-100.0) Mean Corpuscular Hemoglobin 30.2 pg (28.0-32.0) Mean Corpuscular Hemoglobin Concent 31.9 g/dL (32.0-36.0) Red Cell Distribution Width 17.6 % (11.8-14.3) Platelet Count 206 10^3/uL (140-450) Mean Platelet Volume 8.9 fL (6.9-10.8) Neutrophils (%) (Auto) 67.8 % (37.0-80.0) Lymphocytes (%) (Auto) 25.8 % (10.0-50.0) Monocytes (%) (Auto) 5.8 % (0.0-12.0) Eosinophils (%) (Auto) 0.5 % (0.0-7.0) Basophils (%) (Auto) 0.1 % (0.0-2.0) Neutrophils # (Auto) 5.6 10 ^3/uL (1.6-8.6) Lymphocytes # (Auto) 2.1 10 ^3/uL (0.4-5.4) Monocytes # (Auto) 0.5 10 ^3/uL (0-1.3) Eosinophils # (Auto) 0 10 ^3/uL (0-0.8) Basophils # (Auto) 0 10 ^3/uL (0-0.2) Nucleated Red Blood Cells 0.1 % Sodium Level 141 mmol/L (136-145) Potassium Level 3.8 mmol/L (3.5-5.1) Chloride Level 105 mmol/L (98-107) Carbon Dioxide Level 26 mmol/L (20-31) Anion Gap 10 (5-15) Blood Urea Nitrogen 26 mg/dL (9-23) Creatinine 1.80 mg/dL (0.550-1.02) Glomerular Filtration Rate Calc 28 mL/min (>90) BUN/Creatinine Ratio 14.4 (10.0-20.0) Serum Glucose 150 mg/dL (74-106) Calcium Level 9.0 mg/dL (8.7-10.4) Random Vancomycin Level 12.7 ug/mL (5-10) Urine Color Light-yellow (Yellow) Urine Clarity Clear (Clear) Urine pH 5.5 (5.0-9.0) Urine Specific [place] 1.007 (1.001-1.035) Urine Protein Negative (Negative) Urine Ketones Negative (Negative) Urine Blood Negative /uL (Negative) Urine Nitrite Negative (Negative) Urine Bilirubin Negative (Negative) Urine Urobilinogen Normal mg/dL (Negative) Urine Leukocyte Esterase Negative /uL (Negative) Urine RBC 1 /hpf (0 - 4) Urine Microscopic WBC < 1 /HPF (0-5) Urine Squamous Epithelial Cells Few /hpf (<5) Urine Bacteria None seen /hpf (None Seen) Urine Glucose Normal mg/dL (Normal) Total Bilirubin 0.2 mg/dL (0.2-1.0) Aspartate Amino Transferase (AST) 8 U/L (13-40) Alanine Aminotransferase (ALT) < 9 U/L (7-40) Alkaline Phosphatase 47 U/L (46-116) C-Reactive Protein High Sensitivity 0.34 mg/dL (<1.0) Total Protein 6.0 g/dL (5.7-8.2) Albumin 3.4 g/dL (3.2-4.8) Erythrocyte Sedimentation Rate 33 mm/hr (0-20) Test 05/07/25 17:42 05/07/25 14:54 05/07/25 13:15 D-Dimer, Quantitative 2.08 mg/L FEU (0.0-0.49) Troponin I High Sensitivity 9 ng/L (</=34) Influenza Type A Antigen Negative (Negative) Influenza Type B Antigen Negative (Negative) SARS-CoV-2 Antigen (Rapid) Negative (NEGATIVE) Lactic Acid Level 0.8 mmol/L (0.4-2.0) B-Type Natriuretic Peptide 199.18 pg/mL (0-100) Other Laboratory Tests 05/10/25 08:22 Brief Hx & Hospital Course: History of Present Illness 79-year-old female presents for evaluation of shortness for breath. Patient reports a one-week history of worsening shortness for breath with associated wheezing and a dry nonproductive cough. Patient reports being admitted to an outside facility a month ago and was intubated and placed on dialysis temporarily. Denies chest pain or palpitations. No fever or chills. Course of hospitalization: Upon assessment of the patient, her chief complaint was reported to be her right upper and right lower quadrant. Patient had CT scan of the abdomen and pelvis which was unremarkable. Following day, patient denies having any abdominal pain. Patient's white blood cell count increased. Patient was placed on empiric antibiotic therapy. Blood cultures has been negative. Chest x-ray unremarkable. Urinalysis without any noted UTI. Patient denies any symptoms in his requesting to be discharged home. Given her previous prolonged hospitalization with mechanical ventilation, patient's antibiotics will be stopped with the time of discharge. She is instructed to continue all her home medications including her metered-dose inhaler in ics. She is instructed to follow up with her PCP within 1-2 weeks. Physical examination General: Alert and Oriented x3. No acute distress. Well-nourished. Eyes: EOMI. Anicteric. HENT: Moist mucous membranes. Lungs: Clear to auscultation bilaterally. No accessory muscle use. Cardiovascular: Regular rate and rhythm. No murmur. No JVD. Abdomen: Soft, non-tender and non-distended. No palpable masses. Extremities: No edema. Non-tender. Skin: No rashes or lesions. Warm. Neurologic: No focal neurological deficits. CN II-XII grossly intact, but not individually tested. Psychiatric: Cooperative. Appropriate mood and affect. Total time spent with patient discussing and formulating plan of care: 35 minutes. This medical document was created using an electronic medical record system with [employer] dictation system. Although this document has been carefully reviewed, there may still be some phonetic and typographical errors. These areas are purely typographical due to imperfections of the software programs, and do not reflect any compromise in the patient's medical care. Condition at Discharge: Fair Final Diagnosis/Problems List Acute on chronic hypoxic respiratory failure -acute on chronic hypoxic respiratory failure -CKD stage IIIB/four -questionable COPD with exacerbation -abdominal pain, unspecified -CVA -rule out sepsis Discharge Disposition: Home Discharge Instruct/Medications Diet: Regular Activity: No Restrictions, As Tolerated Follow Up/Referral: Follow up with the PCP in 1-2 weeks Medications: Continue all home medications Scheduled Allopurinol (Zyloprim Tablet), 1 TAB PO DAILY, (Reported) Amlodipine Besylate (Norvasc Tablet), 1 TAB PO DAILY, (Reported) Aspirin (Aspirin 81), 81 MG PO DAILY, (Reported) Carvedilol (Carvedilol), 1 TAB PO BID, (Reported) Hydralazine Hcl (Hydralazine Hcl), 50 MG PO DAILY, (Reported) Pantoprazole Sodium Sesquihydr (Protonix), 40 MG PO DAILY, (Reported) 36 Discharge Statement: "Patient was advised to return to the ER or call 911 if any headaches, dizziness, shortness of breath, chest pain, abdominal pain, bleeding, fevers, or worsening of medical condition. Patient was counseled about treatment plan, medications, possible side effects, patientverbalized understanding. All questions were answered to the best of my ability. This discharge took greater then 30 minutes in planning, reviewing documentation, counseling the patient, and discussing with other team members." ASSESSMENT ASSESSMENT Assessment Acute on chronic hypoxic respiratory failure Date of Service: May 10, 2025 Billing Provider: EDUARDO NEGRON NP Common Visit Codes: 11910-LGE/OBS DISCH DAY >30min EDUARDO NEGRON NP May 10, 2025 11:46
== END 2025-05-10 12:42 | disposition home or self-care (01) | DRG 189 ==
LOC: ER 11:52 → OVERFLOW 19:23 → WEST WING 19:27
PROVIDERS: ADMIT Nurse Practitioner Acute Care; ATTEND Nurse Practitioner Acute Care
DX: J96.21 Acute and chronic respiratory failure with hypoxia (principal); N18.4 Chronic kidney disease, stage 4 (severe); N17.9 Acute kidney failure, unspecified; Z99.2 Dependence on renal dialysis; J44.1 Chronic obstructive pulmonary disease with (acute) exacerbation; I13.10 Hypertensive heart and chronic kidney disease without heart failure, with stage 1 through stage 4 chronic kidney disease, or unspecified chronic kidney disease; J45.901 Unspecified asthma with (acute) exacerbation; Z20.822 Contact with and (suspected) exposure to COVID-19; E87.5 Hyperkalemia; Z86.73 Personal history of transient ischemic attack (TIA), and cerebral infarction without residual deficits
CPT/HCPCS: 36415; 71045; 74176; 80048; 80053; 80202; 81001; 83605; 83880; 84484; 85025; 85379; 85652; 86141; 87040; 87081; 87086; 87426; 87804; 93005; 93306; 94640; 96365; 99291; G0378; J2543